=== PATIENT | male | born 1940 | race Caucasian/White ===

== ENCOUNTER → 2018-07-31 | Outpatient (CLI) | payer MEDICARE ==
--- NOTE | 2018-07-31 16:48 | RAD ---
LUMBAR SPINE MIN 4V History: Low back pain, numbness in the right leg since fall last winter Comparison: None. Findings: 6 views lumbar spine are submitted. Lumbar vertebral body stature is overall maintained. There is minimal grade 1 anterior spondylolisthesis L4-5. There is facet degenerative change greater inferiorly of the lumbar spine. There is moderate narrowing of the L5-S1 intervertebral disc space, likely component of interbody fusion. There is spondylosis greatest at L3-4 and L4-5. There is mild degenerative disc disease L3-4 and L4-5. There is a small calcific opacity to the left of the spine near the L2-3 level, small proximal left ureteral calculus not excluded. Impression: 1. There is degenerative disc disease greatest at L5-S1 at which there is probable degree of interbody fusion, to lesser degree at L3-4 and L4-5. There is spondylosis greatest at L3-4 and L4-5. There is grade 1 anterior spondylolisthesis at L4-5 at which there is facet degenerative change. 2. Small proximal left ureteral calculus is not excluded. Electronically signed by: Syed Earl MD (07/31/2018 4:45 PM) [id number]
== END | disposition home or self-care (01) ==
LOC: PMG 08:39
PROVIDERS: ATTEND Physician Assistant Medical
DX: M43.16 Spondylolisthesis, lumbar region (principal); M51.37 Other intervertebral disc degeneration, lumbosacral region; M47.816 Spondylosis without myelopathy or radiculopathy, lumbar region; N20.1 Calculus of ureter
CPT/HCPCS: 72110

== ENCOUNTER → 2018-09-13 | Outpatient (CLI) | payer MEDICARE, OTHER ==
--- NOTE | 2018-09-13 15:37 | RAD ---
CT scan of the abdomen and pelvis without contrast 09/13/2018 CLINICAL HISTORY: Left lower quadrant abdominal pain. TECHNIQUE: Unenhanced, contiguous, 3 mm axial sections were obtained through the abdomen and pelvis. One or more of the following individualized dose reduction techniques were utilized for this study: 1. Automated exposure control. 2. Adjustment of the mA and/or kV according to patient size. 3. Use of iterative reconstruction technique. FINDINGS: Images through the lung bases demonstrate minimal dependent subsegmental atelectasis bilaterally. A 4 mm calcified granuloma is seen involving the left lower lobe. The spleen, pancreas and adrenal glands are within normal limits. A 1 cm rounded low-attenuation lesion is seen involving the right lobe of the liver. This likely represents a hepatic cyst. Multiple rounded low-attenuation lesions are seen scattered throughout both kidneys. These most likely represent cysts. They measure 5 mm to 11 cm in size. No renal or ureteral calculus is seen. There is no evidence of obstruction of either collecting system. Atherosclerotic calcification abdominal aorta and its branches is noted. The abdominal aorta tapers normally. Small calcified gallstones are seen within the dependent portions of the gallbladder. No free fluid or free air is seen within the abdomen. There is no evidence of bowel obstruction. Images through the pelvis demonstrate the urinary bladder distended with urine. The prostate gland is enlarged likely related to BPH. It measures 5.4 x 5.0 x 4.9 cm transverse, craniocaudal and AP dimensions. Calcifications are seen within the pelvis consistent with phleboliths. Multiple diverticula are seen involving the sigmoid colon. No inflammatory changes are seen in the adjacent fat. No free fluid is noted. Degenerative changes are seen involving the lower thoracic and throughout the lumbar spine and both hips. IMPRESSION: No acute abnormality is seen. Electronically signed by: Ed Nichols MD (09/13/2018 3:34 PM) [email or web address]
== END | disposition home or self-care (01) ==
LOC: CT 12:44
PROVIDERS: ATTEND Physician Assistant Medical
DX: K57.90 Diverticulosis of intestine, part unspecified, without perforation or abscess without bleeding (principal); I70.0 Atherosclerosis of aorta; J98.11 Atelectasis; J84.10 Pulmonary fibrosis, unspecified; J98.4 Other disorders of lung; K80.20 Calculus of gallbladder without cholecystitis without obstruction; N40.0 Benign prostatic hyperplasia without lower urinary tract symptoms; M47.815 Spondylosis without myelopathy or radiculopathy, thoracolumbar region; M16.0 Bilateral primary osteoarthritis of hip
CPT/HCPCS: 74176

== ENCOUNTER → 2020-12-15 | Outpatient (CLI) | payer MEDICARE, OTHER ==
--- NOTE | 2020-12-15 10:10 | RAD ---
XR ABDOMEN 1V History: Abdominal pain. Comparison: None. Technique: Supine radiographs of the abdomen and pelvis. Findings: Bowel gas pattern: No abnormally dilated small bowel loops. Ascending colon contains flocculated dens e material, likely ingested medication versus recent oral contrast administration. No excessive colon ic stool burden. Free air: No supine evidence of free air. Abnormal calcifications: None. Bones: Moderate degenerative changes of the lumbar spine and bilateral hips. Other: None. Impression: 1. Nonobstructive bowel gas pattern. Medication or oral contrast material within the ascending colon . Electronically signed by: Anand Russell MD (12/15/2020 10:07 AM) [id number]
== END ==
LOC: PMG 09:19
PROVIDERS: ATTEND Nurse Practitioner Family
DX: R19.7 Diarrhea, unspecified (principal)
CPT/HCPCS: 74018

== ENCOUNTER → 2021-07-21 | Outpatient (CLI) | payer MEDICARE, OTHER ==
--- NOTE | 2021-07-21 11:35 | RAD ---
EXAM: XR ELBOW COMPLETE_RIGHT 3+ VIEWS 07/21/2021 10:48 AM CLINICAL INDICATION: Extended arm today, felt a pop and now painful. COMPARISON: None TECHNIQUE: AP and lateral views of the right elbow FINDINGS: There is no acute fracture. Alignment is normal. Joint spaces are maintained. There is het erotopic ossification at the medial and lateral epicondyle, likely related to chronic epicondylosis. There is a prominent olecranon enthesophyte. No joint effusion. IMPRESSION: No acute osseous abnormality. Electronically signed by: Dora Mondragon MD (07/21/2021 11:33 AM) [id number]
== END ==
LOC: RAD 10:34
PROVIDERS: ATTEND Nurse Practitioner Family
DX: M25.521 Pain in right elbow (principal); Z68.25 Body mass index [BMI] 25.0-25.9, adult
CPT/HCPCS: 73080

== ENCOUNTER → 2021-07-30 | Outpatient (CLI) | payer MEDICARE, OTHER ==
--- NOTE | 2021-07-30 10:45 | RAD ---
EXAM: Right upper extremity venous Doppler sonogram. HISTORY: Pain and swelling. TECHNIQUE: Austin scale and color Doppler sonographic evaluation of the right upper extremity veins wit h spectral waveform analysis was performed. FINDINGS: There is normal color flow, normal compressibility and there are normal spectral waveforms in the upper extremity veins. IMPRESSION: No Doppler evidence of upper extremity venous thrombosis. Electronically signed by: Jessica Michaels MD (07/30/2021 10:42 AM) [id number]
== END ==
LOC: US 09:28
PROVIDERS: ATTEND Physician Assistant Medical
DX: I99.9 Unspecified disorder of circulatory system (principal); M25.521 Pain in right elbow; R22.31 Localized swelling, mass and lump, right upper limb
CPT/HCPCS: 93971